=== PATIENT | female | born 1945 | race Hispanic/Latino ===

== ENCOUNTER 2020-07-06 17:02 | Inpatient (IN) | payer MEDICARE ==
[~2020-07-06] VITALS: Ht 162.6 cm; Wt 89.1 kg
[2020-07-06] MEDS ORDERED: ONDANSETRON HCL INJ 2MG/ML 2ML 2 MG/ML VIAL IV STA (17:25)
[2020-07-06] MEDS ORDERED: MORPHINE SULFATE 2 MG/ML SYR 1ML IV STA (17:25)
[2020-07-06] MEDS ORDERED: SODIUM CHLORIDE 0.9% 500ML 500 ML IV ONE ×2 (17:45→19:00)
[2020-07-06] MEDS ORDERED: PANTOPRAZOLE 40 MG 10ML VIAL IV ONE (17:45)
[2020-07-06 18:17] LABS: CLARITY,URINE HAZY (CLEAR); COLOR,URINE YELLOW (YELLOW); LEUKOCYTE ESTERASE ,URINE TRACE (NEGATIVE); NITRITE,URINE NEGATIVE (NEGATIVE); PROTEIN,URINE DIPSTICK NEGATIVE (NEGATIVE)
[2020-07-06 18:18] LABS: BILIRUBIN,URINE NEGATIVE (NEGATIVE); KETONES,URINE NEGATIVE (NEGATIVE); URINE UROBILINOGEN 0.2 mg/dL (0.2 - 1)
[2020-07-06 18:31] LABS: BACTERIA,URINE RARE /HPF
[2020-07-06 18:44] LABS: BASOPHILS % 0.3 % (0.0-1.0); EOSINOPHILS # (AUTO) 0.1 (0.0-0.4); HEMATOCRIT 37.1 % (34.2-44.1); HEMOGLOBIN 12.3 g/dL (12.0-16.0); LYMPHOCYTES # (AUTO) 2.1 (1.0-3.2); LYMPHOCYTES % 15.6 % (18.0-39.1); MEAN CORPUSCULAR HEMOGLOBIN 28.8 pg (28-32); MEAN CORPUSCULAR HGB CONC 33.2 g/dL (31-35); MEAN CORPUSCULAR VOLUME 86.9 fL (81-99); MONOCYTES # (AUTO) 1.2 (0.2-0.8); MONOCYTES % 8.8 % (4.4-11.3); NEUTROPHILS % 73.6 % (38.7-80.0); PLATELET COUNT 290 x10e3/uL (140-360); RED BLOOD COUNT 4.27 x10e6/uL (3.6-5.1); RED CELL DISTRIBUTION WIDTH 12.8 % (11.7-14.4)
[2020-07-06 18:56] LABS: AMYLASE 51 U/L (25-125); LIPASE 7 U/L (8-78)
[2020-07-06 18:59] LABS: ALANINE AMINOTRANSFERASE < 6 IU/L (0-55); ALBUMIN 4.4 g/dL (3.5-5.0); ALBUMIN/GLOBULIN RATIO 1.3 (0.8-2.0); ALKALINE PHOSPHATASE 159 IU/L (40-150); ANION GAP 16.2 mmol/L (8-16); BLOOD UREA NITROGEN 11 mg/dL (7-26); BUN/CREATININE RATIO 11 (6-25); CALCIUM 11.8 mg/dL (8.4-10.2); CARBON DIOXIDE 24 mmol/L (22-29); CHLORIDE 101 mmol/L (98-107); CREATINE KINASE 66 IU/L (29-168); CREATININE, SERUM 0.97 mg/dL (0.57-1.11); EST GLOMERULAR FILTRATION RATE 56 ML/MIN (60-); GLUCOSE 197 mg/dL (74-118); INR 0.85; POTASSIUM 4.2 mmol/L (3.5-5.1); SODIUM 137 mmol/L (136-145)
[2020-07-06 19:00] LABS: PARTIAL THROMBOPLASTIN TIME 26.4 seconds (23.8-35.5)
[2020-07-06] MEDS ORDERED: IOPAMIDOL 370 MG/ML 200 ML INFUS..BTL INJ ONE (19:30)
[2020-07-06] MEDS ORDERED: SODIUM CHLORIDE 0.9% 50ML 0 ML ONE (19:30)
[2020-07-06] MEDS: CEFTRIAXONE SOD 1 GM/NS 50 ML 50 ML IV SCH ×4 (19:56→21:56)
[2020-07-06] MEDS ORDERED: ACETAMINOPHEN 325 MG TAB PO ONE (21:15)
[2020-07-06] MEDS ORDERED: CEFTRIAXONE SOD 1 GM/NS 50 ML 50 ML IV SCH (21:30)
[2020-07-06] MEDS ORDERED: ONDANSETRON HCL INJ 2MG/ML 2ML 2 MG/ML VIAL IV PRN (21:30)
[2020-07-06] MEDS ORDERED: MORPHINE SULFATE 2 MG/ML SYR 1ML IV PRN (21:30)
[2020-07-06] MEDS ORDERED: ACETAMINOPHEN 325 MG TAB ONE (21:37)
[2020-07-06 23:25] VITALS: BP 126/76
[2020-07-07] VITALS (7 sets, daily range): BP systolic 125–148; BP diastolic 59–78
[2020-07-07] MEDS: LORAZEPAM INJ 2 MG/ML VIAL IV PRN ×2 (01:16→13:13)
[2020-07-07] MEDS ORDERED: PREDNISONE10 MG (01:20)
[2020-07-07] MEDS ORDERED: TRIHEXYPHENIDYL2 MG (01:20)
[2020-07-07] MEDS ORDERED: GABAPENTIN300 MG (01:20)
[2020-07-07] MEDS ORDERED: VENLAFAXINE HC150 MG (01:20)
[2020-07-07] MEDS ORDERED: GLIMEPIRIDE2 MG (01:20)
[2020-07-07] MEDS ORDERED: MONTELUKAST SOD10 MG (01:20)
[2020-07-07] MEDS ORDERED: PREGABALIN150 MG (01:20)
[2020-07-07] MEDS ORDERED: QUETIAPINE FUMA25 MG (01:20)
[2020-07-07] MEDS ORDERED: CARBIDOPA-LEVO1 EAC4 PO (01:20)
[2020-07-07] MEDS ORDERED: AMLODIPINE-VAL1 EAC3 (01:20)
[2020-07-07] MEDS ORDERED: PROPRANOLOL HCL40 MG (01:20)
[2020-07-07] MEDS ORDERED: ATORVASTATIN CA20 MG (01:20)
[2020-07-07] MEDS: SODIUM CHLORIDE 0.9% 1000ML 1,000 ML IV SCH ×3 (01:59→15:46)
[2020-07-07 06:28] LABS: BASOPHILS % 0.3 % (0.0-1.0); EOSINOPHILS # (AUTO) 0.3 (0.0-0.4); EOSINOPHILS % 1.9 % (0.0-6.0); HEMATOCRIT 34.6 % (34.2-44.1); HEMOGLOBIN 11.7 g/dL (12.0-16.0); LYMPHOCYTES # (AUTO) 2.9 (1.0-3.2); LYMPHOCYTES % 21.6 % (18.0-39.1); MEAN CORPUSCULAR HEMOGLOBIN 30.5 pg (28-32); MEAN CORPUSCULAR HGB CONC 33.8 g/dL (31-35); MEAN CORPUSCULAR VOLUME 90.1 fL (81-99); MONOCYTES # (AUTO) 1.6 (0.2-0.8); MONOCYTES % 11.9 % (4.4-11.3); NEUTROPHILS # (AUTO) 8.5 (2.1-6.9); NEUTROPHILS % 63.9 % (38.7-80.0); PLATELET COUNT 293 x10e3/uL (140-360); RED BLOOD COUNT 3.84 x10e6/uL (3.6-5.1); RED CELL DISTRIBUTION WIDTH 12.9 % (11.7-14.4)
[2020-07-07 06:42] LABS: ALBUMIN 4.2 g/dL (3.5-5.0); ALBUMIN/GLOBULIN RATIO 1.4 (0.8-2.0); ANION GAP 15.2 mmol/L (8-16); CALCIUM 10.7 mg/dL (8.4-10.2); CREATININE, SERUM 1.07 mg/dL (0.57-1.11); POTASSIUM 4.2 mmol/L (3.5-5.1)
[2020-07-07] MEDS ORDERED: DOCUSATE SODIUM 100 MG CAP PO PRN (07:00)
[2020-07-07] MEDS ORDERED: ZOLPIDEM TARTRATE 5 MG TAB PO PRN (07:00)
[2020-07-07] MEDS ORDERED: B&O 60MG R/S 60 MG SUPP PR ONE (10:43)
[2020-07-07] MEDS ORDERED: IOPAMIDOL 300MG/ML 50ML INFUS..BTL IV ONE (10:43)
[2020-07-07] MEDS ORDERED: ACETAMINOPHEN/CODEINE 300MG - 30MG TAB PO PRN (11:00)
[2020-07-07] MEDS ORDERED: PHENAZOPYRIDINE HCL 100 MG TAB PO PRN (11:00)
[2020-07-07] MEDS ORDERED: MIDAZOLAM HCL 2 MG/2 ML VIAL ONE (11:47)
[2020-07-07] MEDS ORDERED: FENTANYL CITRATE/PF 100MCG/2 ML INJ ONE (12:03)
[2020-07-07] MEDS: MONTELUKAST SODIUM 10 MG TAB PO SCH (12:25)
[2020-07-07] MEDS: GABAPENTIN 300 MG CAP PO SCH ×2 (12:25→21:00)
[2020-07-07] MEDS: MORPHINE SULFATE INJ 4 MG/ML INJ 1ML IV PRN (12:26)
[2020-07-07] MEDS ORDERED: DEXTROSE 50% SYRINGE 50 ML IV PRN (13:00)
[2020-07-07] MEDS: CARBIDOPA/LEVODOPA 25/100 TAB PO SCH ×2 (15:46→21:00)
[2020-07-07] MEDS: OXYBUTYNIN CHLORIDE 5 MG TAB PO SCH (16:47)
[2020-07-07] MEDS: INSULIN REGULAR, HUMAN 100 UNIT/1 ML 3ML VIAL SQ SCH ×2 (17:00→21:15)
[2020-07-07] MEDS ORDERED: PROPOFOL IV EMULSION 10 MG/ML 20 ML VIAL ONE (17:55)
[2020-07-07] MEDS ORDERED: ONDANSETRON HCL INJ 2MG/ML 2ML 2 MG/ML VIAL ONE (17:55)
[2020-07-07] MEDS ORDERED: LIDOCAINE HCL 2% JELLY 5 ML TUBE ONE (17:55)
[2020-07-07] MEDS ORDERED: SEVOFLURANE INHAL SOLN 250 ML PEN BTL ONE (17:55)
[2020-07-07] MEDS ORDERED: LIDOCAINE HCL 2% LOCAL INJ 5 ML SDV VIAL INJ ONE (17:55)
[2020-07-07] MEDS: CEFTRIAXONE SOD 1 GM/NS 50 ML 50 ML IV SCH (20:00)
[2020-07-07] MEDS: ATORVASTATIN 20 MG TAB PO SCH (21:00)
[2020-07-07] MEDS: QUETIAPINE FUMARATE 25 MG TAB PO SCH (21:00)
[2020-07-08] VITALS (8 sets, daily range): BP systolic 124–154; BP diastolic 51–76
[2020-07-08] MEDS: LORAZEPAM INJ 2 MG/ML VIAL IV PRN ×3 (00:45→23:45)
[2020-07-08] MEDS: SODIUM CHLORIDE 0.9% 1000ML 1,000 ML IV SCH ×4 (00:45→15:52)
[2020-07-08 06:23] LABS: BASOPHILS % 0.3 % (0.0-1.0); EOSINOPHILS # (AUTO) 0.3 (0.0-0.4); EOSINOPHILS % 2.9 % (0.0-6.0); HEMATOCRIT 35.2 % (34.2-44.1); HEMOGLOBIN 11.4 g/dL (12.0-16.0); LYMPHOCYTES # (AUTO) 1.2 (1.0-3.2); LYMPHOCYTES % 11.7 % (18.0-39.1); MEAN CORPUSCULAR HEMOGLOBIN 29.1 pg (28-32); MEAN CORPUSCULAR HGB CONC 32.4 g/dL (31-35); MEAN CORPUSCULAR VOLUME 89.8 fL (81-99); MONOCYTES # (AUTO) 0.6 (0.2-0.8); MONOCYTES % 5.7 % (4.4-11.3); NEUTROPHILS # (AUTO) 7.9 (2.1-6.9); PLATELET COUNT 249 x10e3/uL (140-360); RED BLOOD COUNT 3.92 x10e6/uL (3.6-5.1); RED CELL DISTRIBUTION WIDTH 13.1 % (11.7-14.4)
[2020-07-08 06:44] LABS: ANION GAP 12.6 mmol/L (8-16); BLOOD UREA NITROGEN 8 mg/dL (7-26); BUN/CREATININE RATIO 10 (6-25); CALCIUM 9.5 mg/dL (8.4-10.2); CARBON DIOXIDE 22 mmol/L (22-29); CHLORIDE 107 mmol/L (98-107); EST GLOMERULAR FILTRATION RATE > 60 ML/MIN (60-); GLUCOSE 192 mg/dL (74-118); POTASSIUM 3.6 mmol/L (3.5-5.1); SODIUM 138 mmol/L (136-145)
[2020-07-08 07:09] LABS: CHOL/HDL RATIO 4.7 (3.0-3.6)
[2020-07-08] MEDS: OXYBUTYNIN CHLORIDE 5 MG TAB PO SCH ×2 (08:24→17:00)
[2020-07-08] MEDS: MONTELUKAST SODIUM 10 MG TAB PO SCH (08:24)
[2020-07-08] MEDS: GABAPENTIN 300 MG CAP PO SCH ×2 (08:24→22:00)
[2020-07-08] MEDS: CARBIDOPA/LEVODOPA 25/100 TAB PO SCH ×3 (08:24→22:00)
[2020-07-08] MEDS: INSULIN REGULAR, HUMAN 100 UNIT/1 ML 3ML VIAL SQ SCH ×4 (08:25→22:00)
[2020-07-08] MEDS: ACETAMINOPHEN 325 MG TAB PO PRN (15:52)
[2020-07-08] MEDS: QUETIAPINE FUMARATE 25 MG TAB PO SCH (22:00)
[2020-07-08] MEDS: ATORVASTATIN 20 MG TAB PO SCH (22:00)
[2020-07-08] MEDS: CEFTRIAXONE SOD 1 GM/NS 50 ML 50 ML IV SCH (22:00)
[2020-07-09] VITALS (8 sets, daily range): BP systolic 105–173; BP diastolic 57–92
[2020-07-09] MEDS: ACETAMINOPHEN 325 MG TAB PO PRN (07:47)
[2020-07-09] MEDS: INSULIN REGULAR, HUMAN 100 UNIT/1 ML 3ML VIAL SQ SCH ×4 (09:28→21:00)
[2020-07-09] MEDS: CARBIDOPA/LEVODOPA 25/100 TAB PO SCH ×3 (09:37→20:55)
[2020-07-09] MEDS: OXYBUTYNIN CHLORIDE 5 MG TAB PO SCH ×2 (09:37→17:05)
[2020-07-09] MEDS: GABAPENTIN 300 MG CAP PO SCH ×2 (09:37→20:55)
[2020-07-09] MEDS: MONTELUKAST SODIUM 10 MG TAB PO SCH (09:37)
[2020-07-09] MEDS: SODIUM CHLORIDE 0.9% 1000ML 1,000 ML IV SCH ×3 (12:47→21:30)
[2020-07-09] MEDS: CEFTRIAXONE SOD 1 GM/NS 50 ML 50 ML IV SCH (20:55)
[2020-07-09] MEDS: QUETIAPINE FUMARATE 25 MG TAB PO SCH (20:55)
[2020-07-09] MEDS: ATORVASTATIN 20 MG TAB PO SCH (20:55)
[2020-07-10] VITALS (8 sets, daily range): BP systolic 125–153; BP diastolic 61–96
[2020-07-10] MEDS: MORPHINE SULFATE INJ 4 MG/ML INJ 1ML IV PRN (00:15)
[2020-07-10] MEDS: SODIUM CHLORIDE 0.9% 1000ML 1,000 ML IV SCH ×3 (05:30→21:46)
[2020-07-10] MEDS: INSULIN REGULAR, HUMAN 100 UNIT/1 ML 3ML VIAL SQ SCH ×4 (07:30→21:46)
[2020-07-10 07:59] LABS: BASOPHILS % 0.6 % (0.0-1.0); EOSINOPHILS # (AUTO) 0.9 (0.0-0.4); EOSINOPHILS % 12.9 % (0.0-6.0); HEMATOCRIT 37.9 % (34.2-44.1); HEMOGLOBIN 12.3 g/dL (12.0-16.0); LYMPHOCYTES # (AUTO) 1.8 (1.0-3.2); LYMPHOCYTES % 26.5 % (18.0-39.1); MEAN CORPUSCULAR HEMOGLOBIN 28.8 pg (28-32); MEAN CORPUSCULAR HGB CONC 32.5 g/dL (31-35); MEAN CORPUSCULAR VOLUME 88.8 fL (81-99); MONOCYTES # (AUTO) 0.6 (0.2-0.8); MONOCYTES % 8.9 % (4.4-11.3); NEUTROPHILS # (AUTO) 3.5 (2.1-6.9); NEUTROPHILS % 50.8 % (38.7-80.0); PLATELET COUNT 164 x10e3/uL (140-360); RED BLOOD COUNT 4.27 x10e6/uL (3.6-5.1); RED CELL DISTRIBUTION WIDTH 13.2 % (11.7-14.4)
[2020-07-10 08:23] LABS: ANION GAP 15.8 mmol/L (8-16); BLOOD UREA NITROGEN 6 mg/dL (7-26); BUN/CREATININE RATIO 9 (6-25); CALCIUM 9.9 mg/dL (8.4-10.2); CARBON DIOXIDE 21 mmol/L (22-29); CHLORIDE 110 mmol/L (98-107); CREATININE, SERUM 0.69 mg/dL (0.57-1.11); EST GLOMERULAR FILTRATION RATE > 60 ML/MIN (60-); GLUCOSE 193 mg/dL (74-118); POTASSIUM 3.8 mmol/L (3.5-5.1); SODIUM 143 mmol/L (136-145)
[2020-07-10] MEDS: CARBIDOPA/LEVODOPA 25/100 TAB PO SCH ×3 (09:21→21:46)
[2020-07-10] MEDS: ACETAMINOPHEN 325 MG TAB PO PRN (09:21)
[2020-07-10] MEDS: MONTELUKAST SODIUM 10 MG TAB PO SCH (09:21)
[2020-07-10] MEDS: GABAPENTIN 300 MG CAP PO SCH ×2 (09:21→21:46)
[2020-07-10] MEDS: OXYBUTYNIN CHLORIDE 5 MG TAB PO SCH ×2 (09:21→16:22)
[2020-07-10] MEDS: DOCUSATE SODIUM 100 MG CAP PO SCH (16:22)
[2020-07-10] MEDS: SENNOSIDES 8.6 MG TAB PO SCH (16:22)
[2020-07-10] MEDS: ATORVASTATIN 20 MG TAB PO SCH (21:46)
[2020-07-10] MEDS: CEFTRIAXONE SOD 1 GM/NS 50 ML 50 ML IV SCH (21:46)
[2020-07-10] MEDS: QUETIAPINE FUMARATE 25 MG TAB PO SCH (21:46)
[2020-07-11] VITALS: BP 179/88
[2020-07-11] MEDS: LORAZEPAM INJ 2 MG/ML VIAL IV PRN (02:15)
[2020-07-11] MEDS: SODIUM CHLORIDE 0.9% 1000ML 1,000 ML IV SCH (05:30)
[2020-07-11 05:42] VITALS: BP 153/90
[2020-07-11] MEDS ORDERED: COLACE100 MG PO (07:34)
[2020-07-11] MEDS ORDERED: MILK OF MA2400 MG/10 PO (07:34)
[2020-07-11] MEDS ORDERED: KEFLEX500 MG PO (07:34)
[2020-07-11] MEDS ORDERED: SENOKOT8.6 MG PO (07:34)
[2020-07-11 08:30] VITALS: BP 132/95
[2020-07-11] MEDS: INSULIN REGULAR, HUMAN 100 UNIT/1 ML 3ML VIAL SQ SCH ×2 (08:40→12:27)
[2020-07-11] MEDS: MAGNESIUM HYDROXIDE 30 ML UDC PO SCH ×2 (08:41→12:26)
[2020-07-11 12:00] VITALS: BP 139/89
[2020-07-11] MEDS: OXYBUTYNIN CHLORIDE 5 MG TAB PO SCH (12:26)
[2020-07-11] MEDS: GABAPENTIN 300 MG CAP PO SCH (12:26)
[2020-07-11] MEDS: MONTELUKAST SODIUM 10 MG TAB PO SCH (12:26)
[2020-07-11] MEDS: DOCUSATE SODIUM 100 MG CAP PO SCH (12:26)
[2020-07-11] MEDS: SENNOSIDES 8.6 MG TAB PO SCH (12:26)
[2020-07-11] MEDS: CARBIDOPA/LEVODOPA 25/100 TAB PO SCH (12:26)
[2020-08-03] MEDS ORDERED: CARBIDOPA-LEVO1 EAC4 PO (10:12)
[2020-08-03] MEDS ORDERED: GLIMEPIRIDE2 MG PO (10:13)
[2020-08-03] MEDS ORDERED: AMLODIPINE BESY10 MG PO (10:13)
[2020-08-03] MEDS ORDERED: VENLAFAXINE HCL75 MG PO (10:14)
[2020-08-03] MEDS ORDERED: TRIHEXYPHENIDYL2 MG PO (10:15)
[2020-08-03] MEDS ORDERED: QUETIAPINE FUM100 MG PO (10:16)
[2020-08-03] MEDS ORDERED: TRAZODONE HCL50 MG PO (10:17)
[2020-08-30] MEDS ORDERED: ACETAMINOPHEN650 MG PO (10:24)
[2020-08-30] MEDS ORDERED: DOCUSATE SODIU100 MG PO (10:24)
[2020-08-30] MEDS ORDERED: OXYBUTYNIN CHLOR5 M1 PO (10:24)
== END 2020-07-11 12:41 | disposition home or self-care (01) | DRG 661 ==
LOC: ER 17:54 → ERHOLD 21:44 → MED/SURG3 23:01
PROVIDERS: ADMIT Internal Medicine; ATTEND Internal Medicine
PROC: 0T788DZ Dilation of Bilateral Ureters with Intraluminal Device, Via Natural or Artificial Opening Endoscopic (ICD-10-PCS; 2020-07-07)
PROC: BT141ZZ Fluoroscopy of Kidneys, Ureters and Bladder using Low Osmolar Contrast (ICD-10-PCS; principal; 2020-07-07 11:00)
DX: N13.6 Pyonephrosis (principal); N17.9 Acute kidney failure, unspecified; G20 Parkinson's disease; I10 Essential (primary) hypertension; E11.9 Type 2 diabetes mellitus without complications; E66.01 Morbid (severe) obesity due to excess calories; N31.9 Neuromuscular dysfunction of bladder, unspecified; D64.9 Anemia, unspecified; E83.52 Hypercalcemia; N28.1 Cyst of kidney, acquired; N81.10 Cystocele, unspecified; N81.6 Rectocele; N95.2 Postmenopausal atrophic vaginitis; N36.8 Other specified disorders of urethra; Z90.49 Acquired absence of other specified parts of digestive tract; Z68.33 Body mass index [BMI] 33.0-33.9, adult; N39.498 Other specified urinary incontinence; N39.41 Urge incontinence; Z11.59 Encounter for screening for other viral diseases
CPT/HCPCS: 36415; 71045; 74176; 74420; 80048; 80053; 80061; 81001; 82150; 82550; 82553; 82948; 83036; 83605; 83690; 83880; 83970; 84484; 84550; 85025; 85610; 85730; 87040; 87086; 93005; 96361; 97139; 99284; C1758; C2617; J0696; J1817; J2001; J2060; J2250; J2270; J2405; J3010; J7030; J7040; Q9967; U0002

== ENCOUNTER → 2020-08-06 | Day surgery (SDC) | payer MEDICARE, OTHER ==
[2020-08-03 10:53] LABS: BASOPHILS # (AUTO) 0.1 (0.0-0.1); BASOPHILS % 0.6 % (0.0-1.0); EOSINOPHILS # (AUTO) 0.7 (0.0-0.4); EOSINOPHILS % 6.1 % (0.0-6.0); HEMATOCRIT 36.1 % (34.2-44.1); HEMOGLOBIN 11.6 g/dL (12.0-16.0); LYMPHOCYTES # (AUTO) 3.2 (1.0-3.2); LYMPHOCYTES % 27.2 % (18.0-39.1); MEAN CORPUSCULAR HEMOGLOBIN 29.1 pg (28-32); MEAN CORPUSCULAR HGB CONC 32.1 g/dL (31-35); MEAN CORPUSCULAR VOLUME 90.5 fL (81-99); MONOCYTES # (AUTO) 1.1 (0.2-0.8); MONOCYTES % 9.2 % (4.4-11.3); NEUTROPHILS # (AUTO) 6.6 (2.1-6.9); NEUTROPHILS % 55.8 % (38.7-80.0); PLATELET COUNT 283 x10e3/uL (140-360); RED BLOOD COUNT 3.99 x10e6/uL (3.6-5.1); RED CELL DISTRIBUTION WIDTH 12.5 % (11.7-14.4)
[2020-08-03 11:10] LABS: ANION GAP 14.3 mmol/L (8-16); BLOOD UREA NITROGEN 11 mg/dL (7-26); BUN/CREATININE RATIO 15 (6-25); CALCIUM 11.2 mg/dL (8.4-10.2); CARBON DIOXIDE 24 mmol/L (22-29); CHLORIDE 104 mmol/L (98-107); CREATININE, SERUM 0.71 mg/dL (0.57-1.11); EST GLOMERULAR FILTRATION RATE > 60 ML/MIN (60-); GLUCOSE 142 mg/dL (74-118); POTASSIUM 4.3 mmol/L (3.5-5.1); SODIUM 138 mmol/L (136-145)
--- NOTE | 2020-08-03 12:26 | Diagnostic Imaging Report ---
EXAMINATION: PA and lateral views of the chest. COMPARISON: 07/06/2020 CLINICAL HISTORY: Preoperative examination for urological procedure DISCUSSION: Lungs remain well-inflated and without focal consolidation, pleural effusion, or pneumothorax. Linear opacity compatible with subsegmental atelectasis or scar in the left lower lung, unchanged. Stable cardiomediastinal contour without overt pulmonary edema. No acute osseous abnormalities. Probable calcific fragments within the left shoulder joint versus rotator cuff tendinosis. IMPRESSION: No acute cardiopulmonary abnormalities. Signed by: Dr. Pranav Vela M.D. on 08/03/2020 12:23 PM
--- NOTE | 2020-08-03 12:30 | Diagnostic Imaging Report ---
Exam: Abdominal film Clinical History: Renal stones Comparison: CT abdomen and pelvis without contrast 07/06/2020 DISCUSSION: Interval placement of bilateral internal ureteral stents. The proximal locking loops project over the expected region of the renal pelves. The distal locking loops project over the urinary bladder. 1.3 cm left renal calculus has migrated from the upper pole to the lower pole collecting system when comparing to prior CT. Adjacent 8 mm lower pole calculus is unchanged in position. No calculi along the course of the left ureteral stent. The previously described 4 mm calculus near the right ureterovesical junction is identified along side the distal margin of the right internal ureteral stent. Bowel gas pattern is nonobstructive. Regional skeletal structures are intact. IMPRESSION: Interval placement of bilateral internal ureteral stents, appropriately positioned as above. Migration of a 13 mm left upper pole renal calculus into the lower pole collecting system, with stable position of an adjacent 8 mm lower pole calculus. Stable position of 4 mm distal right ureteral calculus, along side the ureteral stent. Signed by: Dr. Pranav Vela M.D. on 08/03/2020 12:27 PM
[~2020-08-06] MED LIST: AMLODIPINE BESY10 MG PO; AMLODIPINE-VAL1 EAC3; ATORVASTATIN CA20 MG; B&O 60MG R/S 60 MG SUPP PR ONE; CARBIDOPA-LEVO1 EAC4 PO; CEFTRIAXONE SOD 1 GM/NS 50 ML 50 ML IV ONE; COLACE100 MG PO; FENTANYL CITRATE/PF 100MCG/2 ML INJ ONE; GABAPENTIN300 MG; GENTAMICIN SULFATE 40 MG/ML 2 ML VIAL ONE; GLIMEPIRIDE2 MG; GLIMEPIRIDE2 MG PO; IOPAMIDOL 300MG/ML 50ML INFUS..BTL IV ONE; KEFLEX500 MG PO; LIDOCAINE HCL 2% LOCAL INJ 5 ML SDV VIAL INJ ONE; MILK OF MA2400 MG/10 PO; MONTELUKAST SOD10 MG; ONDANSETRON HCL INJ 2MG/ML 2ML 2 MG/ML VIAL ONE; PREDNISONE10 MG; PREGABALIN150 MG; PROPOFOL IV EMULSION 10 MG/ML 20 ML VIAL ONE; PROPRANOLOL HCL40 MG; QUETIAPINE FUM100 MG PO; QUETIAPINE FUMA25 MG; SENOKOT8.6 MG PO; SEVOFLURANE INHAL SOLN 250 ML PEN BTL ONE; TRAZODONE HCL50 MG PO; TRIHEXYPHENIDYL2 MG; TRIHEXYPHENIDYL2 MG PO; VENLAFAXINE HC150 MG; VENLAFAXINE HCL75 MG PO
[2020-08-06 12:13] VITALS: BP 138/81
--- NOTE | 2020-08-07 03:22 | Operative Report ---
DATE OF PROCEDURE: 08/06/2020 SURGEON: Aram Hair MD PREOPERATIVE DIAGNOSES: 1. Left nephrolithiasis. 2. Right ureterolithiasis. 3. Bilateral hydronephrosis. 4. Bilateral indwelling ureteral stents. POSTOPERATIVE DIAGNOSES: 1. Left nephrolithiasis. 2. Right ureterolithiasis. 3. Bilateral hydronephrosis. 4. Bilateral indwelling ureteral stents. 5. Grade 2 cystocele. 6. Grade 2 rectocele. 7. Atrophic (senile) vaginitis. OPERATIONS PERFORMED: Note, these were all staged procedures as part of multistaged, multistep process in managing the patient's urolithiasis. 1. Left-sided extracorporeal shockwave lithotripsy (separate procedure performed for the diagnosis of these left-sided stones). 2. Right ureteroscopy with stone manipulation and extraction (separate procedure performed to remove one right ureteral stone that has failed to pass despite stenting. 3. Left ureteroscopy with stone manipulation and extraction (separate procedure performed to remove multiple left ureteral stones. 4. Radiological services with supervision and interpretation of ureteroscopy. 5. Cystourethroscopy with insertion of left indwelling ureteral stent (separate procedure performed to relieve the hydronephrosis). 6. Cystoscopy with removal of bilateral indwelling ureteral stents (separate procedure performed for the diagnosis of stents). 7. Interpretation of retrograde ureteropyelography, no radiologist present. 8. Supervision of fluoroscopy, no radiologist present. 9. Pelvic examination under anesthesia. ANESTHESIA: General. COMPLICATIONS: None. CLINICAL SUMMARY: Chen Leroy is a 74-year-old woman who underwent bilateral ureteral stenting. She was brought for a staged procedure. She and the family are aware of the risks of bleeding, infection, injury to adjacent structures, need for additional procedures and elected to proceed. Preoperative discussion with the patient and family member were rather extensive with the video extrusion supervisor. All of the countless questions were answered in detail. OPERATIVE PROCEDURE IN DETAIL: Informed consent was verified. Chen Leroy was properly identified, taken to the operating room, placed on the lithotripsy table in supine position. Anesthesia was uneventfully begun. The patient's left nephrolithiasis was localized with biplanar fluoroscopy. A total of 3000 shocks were delivered with fragmentation noted. The patient was carefully and gently repositioned in dorsal lithotomy position with all pressure points well padded. Her genitalia were prepared and draped in usual sterile fashion. The cystoscope sheath with obturator in place was atraumatically inserted. The patient's urethra and bladder were drained. Panendoscopy revealed that the left-sided stent extended to the right side of the bladder, and the right-sided stent was in good position. A guidewire was then placed in the right ureter and guided to the level of the patient's kidney. The stent was then grasped completely, removed and discarded. Semi-rigid ureteroscope was then inserted atraumatically into the distal right ureter. We identified the stone. The patient has failed to pass her stone, despite long-term stenting, the stone was grasped with Nitinol tipless basket and extracted atraumatically. Flexible ureteroscope was then placed over the guidewire and guided to the level of the patient's kidney. Panendoscopy revealed Dave's plaques, but no stones, no suspicious lesions, and no tumors. We carefully examined the ureter as we exited and it was unremarkable. A guidewire was then placed into the left ureter and guided to the level of the patient's kidney. The stent was then grasped completely, removed and discarded. A semi-rigid ureteroscopy was then performed. The ureteroscope was then brought up into the left ureter where we identified numerous stones. Each one of the stones was grasped with Nitinol tipless basket and extracted after half a dozen passes were made. All ureteral stones were cleared. With cystoscopic fluoroscopic guidance a left-sided indwelling ureteral stent was then placed. It was coiled in the patient's kidneys as well as the patient's bladder. The retaining suture was cut short. Interpretation of retrograde ureteropyelography contrast was instilled in retrograde fashion bilaterally. The right side was unremarkable. There were no tumors, no stones, and no diverticula. Unobstructed drainage was observed fluoroscopically. There was only mild fullness. The left side exhibited some mild hydronephrosis. The stent was in good position, coiled in the patient's kidneys as well as the patient's bladder at the end of the case. The patient's bladder was drained. Cystoscope was withdrawn. Pelvic examination under anesthesia revealed a grade 2 cystocele, grade 2 rectocele. There was atrophic (senile) vaginitis. No abnormal palpable pelvic masses could be appreciated. There were no obvious mucosal lesions. The patient was then uneventfully reversed from anesthesia, taken to recovery room in stable condition. Explicit postop instructions were given and we will plan to follow the patient up by returning her to the operating room for cystoscopy, left stent removal, left ureteroscopy and possible laser if needed. In the meantime, a urine culture was sent that was catheterized from the operating room. We will follow up on that culture. She was discharged home on analgesics, antispasmodics, and antibiotics. MD FREDDY Wilson/JOHN /[id number]
== END | disposition home or self-care (01) ==
LOC: OR 07:42
PROVIDERS: ATTEND Urology
DX: N20.0 Calculus of kidney (principal); N20.1 Calculus of ureter; N13.30 Unspecified hydronephrosis; Z46.6 Encounter for fitting and adjustment of urinary device; N81.10 Cystocele, unspecified; N81.6 Rectocele; N95.2 Postmenopausal atrophic vaginitis; N28.89 Other specified disorders of kidney and ureter; G20 Parkinson's disease; I10 Essential (primary) hypertension; E11.9 Type 2 diabetes mellitus without complications; F32.9 Major depressive disorder, single episode, unspecified; Z01.810 Encounter for preprocedural cardiovascular examination; Z01.812 Encounter for preprocedural laboratory examination; Z01.818 Encounter for other preprocedural examination; Z11.59 Encounter for screening for other viral diseases; Z79.84 Long term (current) use of oral hypoglycemic drugs
CPT/HCPCS: 36415 ×2; 50590; 52332; 52352; 71046; 74018; 80048; 82948; 85025; 87086; 88300; 93005; C2617; J0696; J1580; J2001; J2405; J2704; J3010; Q9967; U0002

== ENCOUNTER → 2020-09-03 | Day surgery (SDC) | payer MEDICARE ==
[2020-08-31 09:29] LABS: BASOPHILS % 0.4 % (0.0-1.0); EOSINOPHILS # (AUTO) 0.7 (0.0-0.4); EOSINOPHILS % 7.2 % (0.0-6.0); HEMATOCRIT 33.1 % (34.2-44.1); HEMOGLOBIN 10.7 g/dL (12.0-16.0); LYMPHOCYTES # (AUTO) 3.4 (1.0-3.2); LYMPHOCYTES % 37.7 % (18.0-39.1); MEAN CORPUSCULAR HEMOGLOBIN 28.8 pg (28-32); MEAN CORPUSCULAR HGB CONC 32.3 g/dL (31-35); MEAN CORPUSCULAR VOLUME 89.2 fL (81-99); MONOCYTES # (AUTO) 0.8 (0.2-0.8); MONOCYTES % 8.9 % (4.4-11.3); NEUTROPHILS # (AUTO) 4.1 (2.1-6.9); NEUTROPHILS % 45.5 % (38.7-80.0); PLATELET COUNT 272 x10e3/uL (140-360); RED BLOOD COUNT 3.71 x10e6/uL (3.6-5.1); RED CELL DISTRIBUTION WIDTH 13.4 % (11.7-14.4)
[2020-08-31 09:51] LABS: ANION GAP 12.9 mmol/L (8-16); BLOOD UREA NITROGEN 18 mg/dL (7-26); BUN/CREATININE RATIO 25 (6-25); CALCIUM 10.4 mg/dL (8.4-10.2); CARBON DIOXIDE 25 mmol/L (22-29); CHLORIDE 105 mmol/L (98-107); CREATININE, SERUM 0.72 mg/dL (0.57-1.11); EST GLOMERULAR FILTRATION RATE > 60 ML/MIN (60-); GLUCOSE 207 mg/dL (74-118); POTASSIUM 3.9 mmol/L (3.5-5.1); SODIUM 139 mmol/L (136-145)
[~2020-09-03] MED LIST changes: +ACETAMINOPHEN650 MG PO; -CEFTRIAXONE SOD 1 GM/NS 50 ML 50 ML IV ONE; +DOCUSATE SODIU100 MG PO; -FENTANYL CITRATE/PF 100MCG/2 ML INJ ONE; +GENTAMICIN 80MG/NS 100 ML 200 ML IV ONE; -GENTAMICIN SULFATE 40 MG/ML 2 ML VIAL ONE; +INSULIN REGULAR, HUMAN 100 UNIT/1 ML 3ML VIAL ONE; +LABETALOL HCL 20 ML ONE; -LIDOCAINE HCL 2% LOCAL INJ 5 ML SDV VIAL INJ ONE; -ONDANSETRON HCL INJ 2MG/ML 2ML 2 MG/ML VIAL ONE; +OXYBUTYNIN CHLOR5 M1 PO; +PIPER-TAZ 3.375 GM 50 ML ONE; -PROPOFOL IV EMULSION 10 MG/ML 20 ML VIAL ONE; -SEVOFLURANE INHAL SOLN 250 ML PEN BTL ONE
--- NOTE | 2020-09-03 15:14 | Diagnostic Imaging Report ---
EXAM: ABDOMEN-1VIEW (KUB) DATE: 09/03/2020 2:00 PM INDICATION: Preoperative evaluation for surgery COMPARISON: 08/03/2020 FINDINGS: Left-sided double-J ureter stent identified with proximal pigtail within the expected location of the left renal pelvis and distal tail within the expected location of the urinary bladder. Right uterus that is no longer present. There has been interval decrease in left renal stone burden with largest stone now measuring up to 8 mm. No radiographically evident right-sided renal calculi are appreciated. Bowel gas pattern is nonobstructive. No acute osseous abnormalities identified. IMPRESSION: Interval removal of right ureteral stent. A poorly positioned left ureteral stent. Left renal calculi with as detailed above. Signed by: Dr. Patricio Weldon MD on 09/03/2020 3:11 PM
[2020-09-03 17:00] VITALS: BP 148/73
--- NOTE | 2020-09-04 01:00 | Operative Report ---
DATE OF PROCEDURE: 09/03/2020 SURGEON: Aram Hair MD PREOPERATIVE DIAGNOSES: 1. Left indwelling ureteral stents. 2. Left nephrolithiasis. POSTOPERATIVE DIAGNOSES: 1. Left indwelling ureteral stents. 2. Left nephrolithiasis. 3. Grade 2 cystocele. 4. Grade 3 rectocele. 5. Atrophic (senile) vaginitis. OPERATIONS PERFORMED: Note, these Are all staged procedures as part of multi-staged and multi-step process in managing the patient's urolithiasis. 1. Cystourethroscopy with removal of left indwelling ureteral stents (separate procedure performed for the diagnosis of stents done with separate scope). 2. Left flexible ureteropyeloscopy with holmium laser lithotripsy and extraction of at least a dozen stone fragments (separate procedure performed for the diagnosis of stone done with separate scope). 3. Radiological services for supervision and interpretation of ureteroscopy, no radiologist present. 4. Interpretation of retrograde ureteropyelography, no radiologist present. 5. Supervision of fluoroscopy, no radiologist present. 6. Pelvic examination under anesthesia. ANESTHESIA: General. COMPLICATIONS: None. CLINICAL SUMMARY: Chen Leroy is a 74-year-old woman, who is chronically debilitated. The patient was found to have bilateral urolithiasis with obstruction. The patient underwent several procedures. She is brought to the operating room today in hopes of rendering her stent free and stone issue. She and the family are aware of the risks of bleeding, injury, infection, need for additional procedures and elected to proceed. OPERATIVE PROCEDURE IN DETAIL: Informed consent was verified. Chen Leroy was properly identified, taken to the operating room, placed on the cystoscopy table in the supine position. Anesthesia was uneventfully begun. The patient was then carefully and gently repositioned in the dorsal lithotomy position with all pressure points well padded. Her genitalia were prepared and draped in usual sterile fashion. The cystoscope was inserted into the patient's urethra and bladder was drained. Panendoscopy revealed no suspicious mucosal lesions. No tumors, no stones, no diverticula. There was a stent emerging from the left ureteral orifice. A guidewire was then placed alongside the stent and guided to the level of the patient's kidney. The stent was then grasped completely, removed and discarded. Flexible ureteroscope was then placed over the guidewire and guided below the patient's kidney. Panendoscopy revealed several stones, these stones all seemed small. We performed numerous ureteroscopies with stone extraction, each time reinserting the ureteroscope and studying effect up to the kidney as gently as possible to avoid necessity of the stent. We grasped numerous fragments and there was a lower pole calyx that had a stone that was embedded, looking at it we did not extract it. We therefore performed holmium laser lithotripsy and broke the stone all into several pieces and then we were able to extract the smaller pieces atraumatically. Only a little bit of very fine sand remained. No additional stones that were large enough to grasp were noted. We carefully re-examined the ureter one last time upon exiting, it exhibited no strictures, no stones, no suspicious lesions and no diverticula. The patient's bladder was drained. The cystoscope was withdrawn. INTERPRETATION OF RETROGRADE URETEROPYELOGRAPHY: Contrast was instilled in retrograde fashion by the ureteroscope. The left kidney exhibited mild hydronephrosis. It was hard to discern filling defects. There was a calcification noted on KUB, which did correspond to the stone we had the laser. The ureter was unremarkable on retrograde studies. Pelvic examination under anesthesia revealed a grade 2 cystocele, grade 3 rectocele. There was atrophic (senile) vaginitis. A belladonna and opium suppository was placed. The patient was then uneventfully reversed from anesthesia and taken to recovery room in stable condition. There were no complications to the procedure. She tolerated the procedure well. Plans will be to follow the patient up in the office in about a month. Ideally, a metabolic stone workup should be done. I fear that the patient's incontinence due to her neurogenic bladder may make that not practical without placement of the [place] catheter. Aram MD Laxmi OH/MODL /[id number] cc: Juan Chau MD
== END | disposition home or self-care (01) ==
LOC: OR 12:38
PROVIDERS: ATTEND Urology
DX: N20.0 Calculus of kidney (principal); Z46.6 Encounter for fitting and adjustment of urinary device; N13.30 Unspecified hydronephrosis; N81.10 Cystocele, unspecified; N81.6 Rectocele; N95.2 Postmenopausal atrophic vaginitis; I10 Essential (primary) hypertension; E11.9 Type 2 diabetes mellitus without complications; G20 Parkinson's disease; Z01.812 Encounter for preprocedural laboratory examination; Z20.828 Contact with and (suspected) exposure to other viral communicable diseases; Z79.84 Long term (current) use of oral hypoglycemic drugs
CPT/HCPCS: 36415 ×2; 52353; 74018; 74420; 80048; 82948; 84550; 85025; 88300; C1769; J1580; J2543; Q9967; U0002; J1817